=== PATIENT | male | born 1950 | race Caucasian/White ===

== ENCOUNTER 2016-09-15 11:54 | Emergency (ER) | payer OTHER ==
[~2016-09-15] VITALS: Ht 172.7 cm; Wt 70.3 kg
[2016-09-15] MEDS ORDERED: XANAX1 MG PO (12:31)
[2016-09-15] MEDS ORDERED: LIPITOR 10 MG10 M1 PO (12:31)
[2016-09-15] MEDS ORDERED: LEXAPRO 10 MG T10 M2 PO (12:32)
[2016-09-15] MEDS ORDERED: PROPRANOLOL 4040 M1 PO (12:33)
[2016-09-15] MEDS ORDERED: CLEOCIN HCL150 MG PO (14:08)
[2016-09-15] MEDS ORDERED: CLEOCIN HCL300 MG PO (14:10)
[2016-09-15 14:44] VITALS: BP 90/52
== END 2016-09-15 14:46 | disposition home or self-care (01) ==
LOC: ER 11:54
DX: L02.415 Cutaneous abscess of right lower limb (principal); L03.115 Cellulitis of right lower limb; F10.99 Alcohol use, unspecified with unspecified alcohol-induced disorder

== ENCOUNTER 2016-09-17 19:03 | Emergency (ER) | payer OTHER ==
[~2016-09-17] VITALS: Ht 172.7 cm; Wt 70.3 kg
[~2016-09-17 19:03] MED LIST: CLEOCIN HCL150 MG PO; CLEOCIN HCL300 MG PO; LEXAPRO 10 MG T10 M2 PO; LIPITOR 10 MG10 M1 PO; PROPRANOLOL 4040 M1 PO; XANAX1 MG PO
[2016-09-17 21:19] VITALS: BP 118/79
== END 2016-09-17 21:20 | disposition home or self-care (01) ==
LOC: ER 19:03
DX: L03.115 Cellulitis of right lower limb (principal); A49.02 Methicillin resistant Staphylococcus aureus infection, unspecified site; F41.9 Anxiety disorder, unspecified; E78.00 Pure hypercholesterolemia, unspecified